=== PATIENT | female | born 1990 | race Caucasian/White ===

== ENCOUNTER 2021-11-06 05:03 | Inpatient (IN) ==
[2021-11-06] MEDS ORDERED: OXYTOCIN 30 UNITS/500 ML BAG IV PRN ×2 (05:44→07:24)
[2021-11-06] MEDS ORDERED: LIDOCAINE 1% LOCAL 20 ML VIAL INFIL PRN (05:44)
[2021-11-06 06:14] LABS: Hematocrit (blood only) 34.3 % (34.1-44.9); Hemoglobin 11.2 g/dl (12.0-16.0); Mean Corpuscular Hemoglobin 27.4 pg (25.0-34.0); Mean Corpuscular Hgb Conc 32.7 g/dL (32.0-36.0); Mean Corpuscular Volume 83.9 fL (80.0-100.0); Mean Platelet Volume 10.6 fL (9.4-12.3); Platelet Count 203 K/uL (130-400); RDW Coefficient of Variation 14.6 % (11.5-14.5); RDW Standard Deviation 44.6 fL (36.4-46.3); Red Blood Count 4.09 M/uL (3.93-5.22)
--- NOTE | 2021-11-06 07:28 | History & Physical Report ---
Date of Service November 06, 2021 Assessment & Plan (1) 38 weeks gestation of : (2) PROM (premature rupture of membranes): (3) Insulin controlled gestational diabetes mellitus (GDM) during : Plan admit, iv, labs. plan intermittent bsg. pitocin rec and agrees. fhts were categ 1, will need to get back on monitor. deferred repeat exam given on evidence of labor Admission and Anticipated Discharge Date Admission Date: November 06, 2021 History of Present Illness Chief Complaint: prom at term Primary Care Provider: Courtney Joshi PA-C 31yo at 38+wk ega presents to L&D with PROM at term. ROM clear fluid at 320am today. No regular ctx, just some cramping. Some pink dc but no bleeding. +FM. PNC c/b 1. GDM on insulin, was taking with meals and qhs. PNL rh pos, ri, gbs neg OBH: g1 GYNH: nl paps no stds Allergies Allergy/AdvReac Type Severity Reaction Status Date / Time amoxicillin AdvReac Rash Verified 10/30/21 15:40 Home Medications Medication Instructions Recorded Confirmed Type calcium carbonate 200 mg calcium 400 mg PO BID PRN gi-upset 01/08/21 11/06/21 History (500 mg) chewable tablet (Tums) [id number] 1 mg 0 tab PO DAILY 01/08/21 11/06/21 History tablet acetone (urine) test (Ketone Urine #50 ea 09/12/21 10/30/21 Rx Test strips) blood sugar diagnostic (OneTouch #150 ea 09/12/21 10/30/21 Rx Verio test strips) blood-glucose meter (OneTouch #1 ea 09/12/21 10/30/21 Rx Verio Reflect Meter) lancets 33 gauge (OneTouch Delica #150 ea 09/12/21 10/30/21 Rx Lancets) ondansetron HCl 4 mg tablet 4 mg PO Q6H PRN nausea and 09/16/21 11/06/21 Rx vomiting #20 tabs insulin NPH isoph U-100 human 100 10 unit (0.1 mL) subcut QPM #15 mL 10/01/21 11/06/21 Rx unit/mL (3 mL) subcutaneous pen (Novolin N Flexpen) insulin aspart U-100 100 unit/mL 5 unit (0.05 mL) subcut TID #15 mL 10/01/21 11/06/21 Rx (3 mL) subcutaneous pen (Novolog Flexpen U-100 Insulin aspart) pen needle, diabetic 32 gauge x #150 ea 10/01/21 10/30/21 Rx /32" (BD Ultra-Fine Sumi Pen Needle) Patient History Medical History (Updated 11/06/21 @ 07:26 by Ayaka Monaco MD, FACOG) No known health problems Surgical History S/P colonoscopy Status post colposcopy Family History Other Adopted Family history non-contributory Social History Smoking Status: Never smoker Second Hand Exposure: No; Do You Dip or Chew Tobacco: No; Tobacco Cessation Education Requested by Patient: No Hx Alcohol Use: No Hx Substance Use: No Preferred Language: Greenlandic Communication Ability: Effective Librarian Helper Required: No Beliefs That Will Affect Care: None marital status: marital status details: Kevin (32) [phone] Current Living Situation: Spouse Current Living Situation Comment: Lives with spouse, 2 cats, spouse to change litter. current occupational status: unemployed Other Information That Helps Us Care for You: No Feels Safe at Home: Yes Safety Concerns: Feels Safe At This Time Assistive Devices: None Review of Systems as per Subjective / HPI Physical Exam Constitutional: WD/WN, vitals as above Respiratory: normal respiratory effort, lungs clear to auscultation Cardiovascular: Rate/Rhythm: regular rate and regular rhythm Gastrointestinal (Abdomen): soft gravid nt efw 8-9# Musculoskeletal: tr edema nontender calves Neurologic: grossly normal Psychiatric: A+Ox3, euthymic affect Genitourinary: Manual OB Exam: + cervical dilation (2-3), + cervical effacement 90%, + station -2 and + amniotic fluid clear OB Exam Monitor Tracing: + external FHT monitor used, + external uterine monitor used (irreg on last time on monitor), + category I and + normal FHT variability Results & Data ([place]) Vital Signs (Past 12 Hours) Vital Signs Temp Pulse Resp BP 11/06/21 05:36 98.6 F 18 11/06/21 07:00 98.1 F 11/06/21 05:30 18 11/06/21 05:30 98.6 F 18 11/06/21 05:24 85 132/85 Code Status & VTE Plan VTE Prophylaxis Plan VTE Prophylaxis will be ordered: No Coding Level of Care Code None Diagnoses 38 weeks gestation of Z3A.38 PROM (premature rupture of membranes) O42.90 Insulin controlled gestational diabetes mellitus (GDM) during O24.414
[2021-11-06] MEDS: LACTATED RINGER'S 1,000 ML IV PRN ×3 (09:40→20:30)
[2021-11-06] MEDS ORDERED: ePHEDrine sulfate 50 MG/ML AMP ONE (17:19)
[2021-11-06] MEDS ORDERED: fentaNYL 2MCG/ML ROPIVACAINE 1.25MG/ML 100 ML BAG EPI ONE (17:20)
[2021-11-06] MEDS ORDERED: BUPIVACAINE 0.25% 30 ML VIAL ONE (17:20)
[2021-11-06] MEDS ORDERED: LIDOCAINE 2%/EPINEPHRINE 1:200,000 20 ML SDV ONE (17:20)
[2021-11-06] MEDS ORDERED: SODIUM CHLORIDE 0.9% INJ 10 ML VIAL ONE (17:20)
[2021-11-06] MEDS ORDERED: fentaNYL citrate 100 MCG/2 ML VIAL ONE (17:20)
--- NOTE | 2021-11-06 19:51 | Anesthesiology Consultation ---
Date of Service November 06, 2021 Assessment & Plan Chart Review Chart Review: Acceptable Risk for Labor Epidural Consults Requested none History Height/Weight Height: 5 ft 3 in Weight: 97.069 kg Allergies Allergy/AdvReac Type Severity Reaction Status Date / Time amoxicillin AdvReac Rash Verified 10/30/21 15:40 Medications Home Medications Medication Instructions Recorded Confirmed Last Taken calcium carbonate 200 mg calcium 400 mg PO BID PRN gi-upset 01/08/21 11/06/21 Unknown (500 mg) chewable tablet (Tums) [id number] 1 mg 0 tab PO DAILY 01/08/21 11/06/21 Unknown tablet acetone (urine) test (Ketone Urine #50 ea 09/12/21 10/30/21 Unknown Test strips) blood sugar diagnostic (OneTouch #150 ea 09/12/21 10/30/21 Unknown Verio test strips) blood-glucose meter (OneTouch #1 ea 09/12/21 10/30/21 Unknown Verio Reflect Meter) lancets 33 gauge (OneTouch Delica #150 ea 09/12/21 10/30/21 Unknown Lancets) ondansetron HCl 4 mg tablet 4 mg PO Q6H PRN nausea and 09/16/21 11/06/21 Unknown vomiting #20 tabs insulin NPH isoph U-100 human 100 10 unit (0.1 mL) subcut QPM #15 mL 10/01/21 11/06/21 Unknown unit/mL (3 mL) subcutaneous pen (Novolin N Flexpen) insulin aspart U-100 100 unit/mL 5 unit (0.05 mL) subcut TID #15 mL 10/01/21 11/06/21 Unknown (3 mL) subcutaneous pen (Novolog Flexpen U-100 Insulin aspart) pen needle, diabetic 32 gauge x #150 ea 10/01/21 10/30/21 Unknown 5/32" (BD Ultra-Fine Sumi Pen Needle) Active Medications Generic Name Dose Route Start Last Admin Trade Name Freq PRN Reason Stop Dose Admin Lactated Ringer's 1,000 mls @ 125 mls/hr 11/06/21 05:44 11/06/21 19:30 Lr IV 11/08/21 05:43 125 mls/hr .Q8H PRN Infusion L&D Protocol Protocol Oxytocin 30 units in 500 mls @ 21 mls/hr 11/06/21 07:24 11/06/21 18:30 Pitocin IV 11/08/21 07:23 1.26 units/hr .[id number] PRN 21 mls/hr Labor Induction/Augmentation Titration Protocol 1.26 UNITS/HR Past Medical History Medical History (Updated 11/06/21 @ 07:26 by Ayaka Monaco MD, FACOG) No known health problems Past Family History Family History Other Adopted Family history non-contributory Past Surgical History Surgical History S/P colonoscopy Status post colposcopy Social History Smoking Status: Never smoker Do You Dip or Chew Tobacco: No Hx Alcohol Use: No Hx Substance Use: No substance use type: does not use Physical Exam Vital Signs Last Vital Signs Temp 36.9 C 11/06/21 19:00 Pulse 100 H 11/06/21 19:48 Resp 18 11/06/21 19:00 BP 153/79 H 11/06/21 19:48 Pulse Ox 100 11/06/21 19:45 Testing Laboratory Results 11/06/21 05:56 Blood Type O Positive 11/06/21 05:56 Antibody Screen NEGATIVE 11/06/21 05:56 11/06/21 11/06/21 11/06/21 18:32 16:29 13:46 POC Glucose 92 80 86
[2021-11-06] MEDS ORDERED: ePHEDrine sulfate 50 MG/ML AMP IV PRN (19:53)
[2021-11-06] MEDS ORDERED: fentaNYL 2MCG/ML ROPIVACAINE 1.25MG/ML 100 ML BAG EPI PRN (19:53)
[2021-11-06] MEDS ORDERED: diphenhydrAMINE 50 MG/ML VIAL IV PRN (19:53)
[2021-11-06] MEDS ORDERED: NALOXONE HCL 0.4 MG/1 ML VIAL/CARP IV PRN (19:53)
[2021-11-06] MEDS ORDERED: NALBUPHINE HCL INJ 10 MG/ML AMP IV PRN (19:53)
[2021-11-06] MEDS ORDERED: NALOXONE HCL 1 MG in SODIUM CHLORIDE 0.9% 1000ML 1,000 ML IV PRN (19:53)
--- NOTE | 2021-11-06 21:10 | Labor Progress Brief Note ---
Date of Service November 06, 2021 Subjective comfortable with epidural analgesia FHT category 1 pitocin at 23 mu's contractions still not in a good pattern cervix still 5/80/-2 IUPC placed without difficulty and contractons confirmed to be inadequate continue current labor plan- increase pit per protocol. Assessment & Plan Admission and Anticipated Discharge Date Admission Date: November 06, 2021 Results & Data ([facility]) Vital Signs (Past 12 Hours) Vital Signs Temp Pulse Resp BP Pulse Ox 11/06/21 17:00 97.9 F 11/06/21 15:00 97.9 F 11/06/21 13:30 97.9 F 11/06/21 21:05 108 H 99 11/06/21 21:06 110 H 113/57 L 11/06/21 21:00 102 H 98 11/06/21 20:55 106 H 98 11/06/21 20:51 90 143/80 H 11/06/21 20:50 91 H 96 11/06/21 20:45 111 H 98 11/06/21 20:40 108 H 98 11/06/21 20:35 94 H 96 11/06/21 20:36 97 H 129/69 11/06/21 20:30 92 H 96 11/06/21 20:25 95 H 96 11/06/21 20:20 96 H 128/69 96 11/06/21 20:15 96 H 95 11/06/21 20:10 96 H 97 11/06/21 20:11 96 H 94 11/06/21 20:06 105 H 132/69 11/06/21 20:05 98 H 98 11/06/21 20:00 107 H 18 99 11/06/21 19:55 99 H 99 11/06/21 19:50 99 H 99 11/06/21 19:48 100 H 153/79 H 11/06/21 19:45 102 H 147/71 H 100 11/06/21 19:42 103 H 149/78 H 11/06/21 19:40 103 H 100 11/06/21 19:38 90 146/70 H 11/06/21 19:35 103 H 100 11/06/21 19:30 116 H 100 11/06/21 19:25 100 H 100 11/06/21 19:20 87 100 11/06/21 19:00 18 11/06/21 19:00 98.4 F 18 11/06/21 19:15 104 H 100 11/06/21 19:02 89 127/75 11/06/21 18:30 102 H 134/87 11/06/21 17:30 98.2 F 11/06/21 17:17 92 H 140/70 11/06/21 16:16 86 133/62 11/06/21 15:31 80 128/71 11/06/21 14:33 88 146/76 H 11/06/21 13:34 90 128/80 11/06/21 12:23 90 149/76 H 11/06/21 11:30 18 11/06/21 11:30 18 11/06/21 11:24 93 H 135/76 11/06/21 11:00 18 11/06/21 11:00 97.2 F L 11/06/21 11:01 102 H 150/86 H 11/06/21 09:30 97.9 F 11/06/21 09:39 104 H 132/65 Coding Level of Care Code None
[2021-11-07] MEDS: FAMOTIDINE 20 MG TAB PO SCH ×2 (00:54→10:54)
[2021-11-07] MEDS ORDERED: CALCIUM CARBONATE 500 MG CHEWABLE TAB PO STA (02:50)
--- NOTE | 2021-11-07 02:58 | Labor Progress Brief Note ---
Date of Service November 07, 2021 Subjective pitocin now at 30 mu's - contractions every 3-4 minutes but still only max of 30mmHg FHT's Category 1 7cm/90/-2 will stop pitocin for 30 minutes and restart at 15 mu's to see if this will help reset the pattern patient and agreeable to this plan Assessment & Plan Admission and Anticipated Discharge Date Admission Date: November 06, 2021 Results & Data ([facility]) Vital Signs (Past 12 Hours) Vital Signs Temp Pulse Resp BP Pulse Ox 11/06/21 17:00 97.9 F 11/06/21 15:00 97.9 F 11/07/21 02:45 134 H 99 11/07/21 02:40 118 H 100 11/07/21 02:37 104 H 150/83 H 11/07/21 02:35 107 H 100 11/07/21 02:30 99 H 98 11/07/21 02:25 114 H 100 11/07/21 02:20 99 H 124/72 99 11/07/21 02:15 97 H 97 11/07/21 02:10 94 H 98 11/07/21 02:05 105 H 122/76 98 11/07/21 02:00 98 H 96 11/07/21 01:55 106 H 96 11/07/21 01:51 99 H 128/79 11/07/21 01:50 102 H 98 11/07/21 01:45 107 H 100 11/07/21 01:40 111 H 99 11/07/21 01:35 114 H 140/98 99 11/07/21 01:30 123 H 18 99 11/07/21 01:25 136 H 99 11/07/21 01:20 102 H 98 11/07/21 01:15 112 H 98 11/07/21 01:10 111 H 98 11/07/21 01:05 94 H 127/59 L 99 11/07/21 01:00 100 H 100 11/07/21 00:55 100 H 100 11/07/21 00:52 88 129/60 11/07/21 00:50 99 H 100 11/07/21 00:45 95 H 100 11/07/21 00:40 101 H 99 11/07/21 00:35 100 H 100 11/07/21 00:36 104 H 132/89 11/07/21 00:30 99.0 F 99 H 18 99 11/07/21 00:25 130 H 99 11/07/21 00:20 108 H 100 11/07/21 00:21 112 H 140/95 11/07/21 00:15 98 H 100 11/07/21 00:10 93 H 96 11/07/21 00:05 90 98 11/07/21 00:06 90 135/71 11/07/21 00:00 91 H 18 96 11/06/21 23:55 91 H 95 11/06/21 23:50 96 H 97 11/06/21 23:51 107 H 142/84 H 11/06/21 23:45 105 H 98 11/06/21 23:40 100 H 96 11/06/21 23:36 93 H 143/77 H 11/06/21 23:35 89 98 11/06/21 23:30 98 H 99 11/06/21 23:25 101 H 98 11/06/21 23:20 97 H 144/71 H 98 11/06/21 23:15 98 H 97 11/06/21 23:10 87 98 11/06/21 23:06 86 146/72 H 11/06/21 23:05 91 H 98 11/06/21 23:00 114 H 18 100 11/06/21 22:55 85 100 11/06/21 22:50 90 152/81 H 100 11/06/21 22:45 84 99 11/06/21 22:40 83 100 11/06/21 22:36 83 138/71 11/06/21 22:35 77 99 11/06/21 22:30 81 100 11/06/21 22:25 93 H 100 11/06/21 22:20 84 138/76 99 11/06/21 22:15 82 98 11/06/21 22:10 82 98 11/06/21 22:07 84 136/76 11/06/21 22:05 82 98 11/06/21 22:00 82 18 98 11/06/21 21:55 79 98 11/06/21 21:50 98 11/06/21 21:50 81 11/06/21 21:50 80 133/63 11/06/21 21:45 87 99 11/06/21 21:40 93 H 98 11/06/21 21:37 81 135/67 11/06/21 21:35 87 98 11/06/21 21:30 86 98 11/06/21 21:25 87 100 11/06/21 21:21 96 H 134/70 11/06/21 21:20 98 H 98 11/06/21 21:15 94 H 99 11/06/21 21:10 103 H 100 11/06/21 21:05 108 H 99 11/06/21 21:06 110 H 113/57 L 11/06/21 21:00 98.6 F 102 H 18 98 11/06/21 20:55 106 H 98 11/06/21 20:51 90 143/80 H 11/06/21 20:50 91 H 96 11/06/21 20:45 111 H 98 11/06/21 20:40 108 H 98 11/06/21 20:35 94 H 96 11/06/21 20:36 97 H 129/69 11/06/21 20:30 92 H 96 11/06/21 20:25 95 H 96 11/06/21 20:20 96 H 128/69 96 11/06/21 20:15 96 H 95 11/06/21 20:10 96 H 97 11/06/21 20:11 96 H 94 11/06/21 20:06 105 H 132/69 11/06/21 20:05 98 H 98 11/06/21 20:00 107 H 18 99 11/06/21 19:55 99 H 99 11/06/21 19:50 99 H 99 11/06/21 19:48 100 H 153/79 H 11/06/21 19:45 102 H 147/71 H 100 11/06/21 19:42 103 H 149/78 H 11/06/21 19:40 103 H 100 11/06/21 19:38 90 146/70 H 11/06/21 19:35 103 H 100 11/06/21 19:30 116 H 100 11/06/21 19:25 100 H 100 11/06/21 19:20 87 100 11/06/21 19:00 18 11/06/21 19:00 98.4 F 18 11/06/21 19:15 104 H 100 11/06/21 19:02 89 127/75 11/06/21 18:30 102 H 134/87 11/06/21 17:30 98.2 F 11/06/21 17:17 92 H 140/70 11/06/21 16:16 86 133/62 11/06/21 15:31 80 128/71 Coding Level of Care Code None
[2021-11-07] MEDS: LACTATED RINGER'S 1,000 ML IV PRN ×2 (03:33→09:03)
[2021-11-07] MEDS ORDERED: ONDANSETRON INJ 2 MG/ML 2 ML VIAL IV PRN (07:27)
[2021-11-07] MEDS ORDERED: LACTATED RINGER'S 1,000 ML IV SCH ×2 (09:00→10:55)
[2021-11-07] MEDS ORDERED: CITRIC ACID/SODIUM CITRATE 15 ML UDC ONE (09:00)
--- NOTE | 2021-11-07 09:04 | Labor Progress Brief Note ---
Date of Service November 07, 2021 Subjective pitocin now at 23 mu's FHT's category 1 cervix exam unchanged at /-2 head feels asynclitic- patient counseled that since there has been no cervical change nor any further descent of the head that proceeding with LTCS would be an appropriate plan at this time. Shyanne and her are willing to proceed with section and were counseled on the risks of the procedure including bleeding & infection as well as the option to continue with labor but they feel ready to move onto delivery. all questions were answered to their satisfaction and they are willing to proceed. Assessment & Plan Admission and Anticipated Discharge Date Admission Date: November 06, 2021 Results & Data ([facility]) Vital Signs (Past 12 Hours) Vital Signs Temp Pulse Resp BP Pulse Ox 11/07/21 08:50 125 H 151/88 H 11/07/21 08:36 115 H 157/89 H 11/07/21 08:35 117 H 99 11/07/21 08:33 18 11/07/21 08:33 99.0 F 18 11/07/21 08:30 109 H 100 11/07/21 08:25 107 H 100 11/07/21 08:20 100 H 150/79 H 99 11/07/21 08:15 100 H 98 11/07/21 08:10 98 H 98 11/07/21 08:05 106 H 140/81 99 11/07/21 08:00 104 H 100 11/07/21 07:55 107 H 99 11/07/21 07:50 104 H 137/77 98 11/07/21 07:45 107 H 98 11/07/21 07:40 105 H 97 11/07/21 07:35 107 H 142/77 H 98 11/07/21 07:30 110 H 98 11/07/21 07:25 114 H 100 11/07/21 07:20 109 H 98 11/07/21 07:21 103 H 140/80 11/07/21 07:15 113 H 99 11/07/21 07:10 108 H 100 11/07/21 07:07 20 11/07/21 07:07 98.6 F 20 11/07/21 07:05 110 H 151/83 H 100 11/07/21 07:00 112 H 100 11/07/21 06:55 107 H 100 11/07/21 06:50 113 H 100 11/07/21 06:51 111 H 143/80 H 11/07/21 06:45 105 H 100 11/07/21 06:40 109 H 99 11/07/21 06:35 99 H 119/60 99 11/07/21 06:30 92 H 100 11/07/21 06:25 90 99 11/07/21 06:20 99 H 119/58 L 98 11/07/21 06:15 97 H 99 11/07/21 06:10 101 H 100 11/07/21 06:05 106 H 121/56 L 100 11/07/21 06:00 92 H 99 11/07/21 05:55 97 H 100 11/07/21 05:50 93 H 99 11/07/21 05:51 90 122/58 L 11/07/21 05:45 88 99 11/07/21 05:40 90 98 11/07/21 05:35 83 114/60 99 11/07/21 05:30 98.6 F 90 18 100 11/07/21 05:25 107 H 100 11/07/21 05:20 113 H 100 11/07/21 05:15 97 H 98 11/07/21 05:10 97 H 98 11/07/21 05:05 93 H 98 11/07/21 05:06 96 H 137/77 11/07/21 05:00 97 H 97 11/07/21 04:55 103 H 97 11/07/21 04:50 97 H 141/73 H 99 11/07/21 04:45 98 H 97 11/07/21 04:40 94 H 98 11/07/21 04:35 90 144/73 H 98 11/07/21 04:30 97 H 98 11/07/21 04:25 101 H 98 11/07/21 04:20 101 H 134/70 98 11/07/21 04:15 121 H 98 11/07/21 04:10 107 H 96 11/07/21 04:05 110 H 124/69 96 11/07/21 04:00 112 H 96 11/07/21 03:55 116 H 96 11/07/21 03:52 117 H 133/78 11/07/21 03:50 116 H 96 11/07/21 03:45 128 H 97 11/07/21 03:40 136 H 97 11/07/21 03:35 111 H 97 11/07/21 03:30 98.2 F 112 H 18 97 11/07/21 03:25 121 H 98 11/07/21 03:20 105 H 147/74 H 97 11/07/21 03:15 107 H 97 11/07/21 03:10 108 H 96 11/07/21 03:05 110 H 148/70 H 97 11/07/21 03:00 115 H 98 11/07/21 02:55 123 H 98 11/07/21 02:50 118 H 151/73 H 97 11/07/21 02:45 134 H 99 11/07/21 02:40 118 H 100 11/07/21 02:37 104 H 150/83 H 11/07/21 02:35 107 H 100 11/07/21 02:30 99 H 98 11/07/21 02:25 114 H 100 11/07/21 02:20 99 H 124/72 99 11/07/21 02:15 97 H 97 11/07/21 02:10 94 H 98 11/07/21 02:05 105 H 122/76 98 11/07/21 02:00 98 H 96 11/07/21 01:55 106 H 96 11/07/21 01:51 99 H 128/79 11/07/21 01:50 102 H 98 11/07/21 01:45 107 H 100 11/07/21 01:40 111 H 99 11/07/21 01:35 114 H 140/98 99 11/07/21 01:30 123 H 18 99 11/07/21 01:25 136 H 99 11/07/21 01:20 102 H 98 11/07/21 01:15 112 H 98 11/07/21 01:10 111 H 98 11/07/21 01:05 94 H 127/59 L 99 11/07/21 01:00 100 H 100 11/07/21 00:55 100 H 100 11/07/21 00:52 88 129/60 11/07/21 00:50 99 H 100 11/07/21 00:45 95 H 100 11/07/21 00:40 101 H 99 11/07/21 00:35 100 H 100 11/07/21 00:36 104 H 132/89 11/07/21 00:30 99.0 F 99 H 18 99 11/07/21 00:25 130 H 99 11/07/21 00:20 108 H 100 11/07/21 00:21 112 H 140/95 11/07/21 00:15 98 H 100 11/07/21 00:10 93 H 96 11/07/21 00:05 90 98 11/07/21 00:06 90 135/71 11/07/21 00:00 91 H 18 96 11/06/21 23:55 91 H 95 11/06/21 23:50 96 H 97 11/06/21 23:51 107 H 142/84 H 11/06/21 23:45 105 H 98 11/06/21 23:40 100 H 96 11/06/21 23:36 93 H 143/77 H 11/06/21 23:35 89 98 11/06/21 23:30 98 H 99 11/06/21 23:25 101 H 98 11/06/21 23:20 97 H 144/71 H 98 11/06/21 23:15 98 H 97 11/06/21 23:10 87 98 11/06/21 23:06 86 146/72 H 11/06/21 23:05 91 H 98 11/06/21 23:00 114 H 18 100 11/06/21 22:55 85 100 11/06/21 22:50 90 152/81 H 100 11/06/21 22:45 84 99 11/06/21 22:40 83 100 11/06/21 22:36 83 138/71 11/06/21 22:35 77 99 11/06/21 22:30 81 100 11/06/21 22:25 93 H 100 11/06/21 22:20 84 138/76 99 11/06/21 22:15 82 98 11/06/21 22:10 82 98 11/06/21 22:07 84 136/76 11/06/21 22:05 82 98 11/06/21 22:00 82 18 98 11/06/21 21:55 79 98 11/06/21 21:50 98 11/06/21 21:50 81 11/06/21 21:50 80 133/63 11/06/21 21:45 87 99 11/06/21 21:40 93 H 98 11/06/21 21:37 81 135/67 11/06/21 21:35 87 98 11/06/21 21:30 86 98 11/06/21 21:25 87 100 11/06/21 21:21 96 H 134/70 11/06/21 21:20 98 H 98 11/06/21 21:15 94 H 99 11/06/21 21:10 103 H 100 11/06/21 21:05 108 H 99 11/06/21 21:06 110 H 113/57 L 11/06/21 21:00 98.6 F 102 H 18 98 Coding Level of Care Code None
[2021-11-07] MEDS ORDERED: CITRIC ACID/SODIUM CITRATE 15 ML UDC PO SCH (09:15)
[2021-11-07] MEDS ORDERED: LIDOCAINE 2%/EPINEPHRINE 1:200,000 20 ML SDV ONE (10:02)
[2021-11-07] MEDS ORDERED: PHENYLEPHRINE 100MCG/ML 5ML SYR ONE (10:02)
[2021-11-07] MEDS ORDERED: ONDANSETRON INJ 2 MG/ML 2 ML VIAL ONE (10:02)
[2021-11-07] MEDS ORDERED: METOCLOPRAMIDE HCL INJ 5 MG/ML 2 ML VIAL ONE (10:02)
[2021-11-07] MEDS ORDERED: MoRPHine SULFATE PF 1 MG/ML 10 ML AMP/VIAL ONE (10:02)
[2021-11-07] MEDS ORDERED: KETOROLAC 30 MG/ML VIAL ONE (10:02)
[2021-11-07] MEDS ORDERED: NALOXONE HCL 1 MG in SODIUM CHLORIDE 0.9% 1000ML 1,000 ML IV PRN (10:12)
[2021-11-07] MEDS ORDERED: LACTATED RINGER'S 500 ML IV PRN (10:12)
[2021-11-07] MEDS ORDERED: NALOXONE HCL 0.08 MG in SYRINGE 1.8 ML IV PRN (10:12)
[2021-11-07] MEDS ORDERED: NALBUPHINE HCL INJ 10 MG/ML AMP IV PRN (10:12)
[2021-11-07] MEDS ORDERED: ePHEDrine sulfate 50 MG/ML AMP IV PRN (10:12)
[2021-11-07] MEDS ORDERED: diphenhydrAMINE 50 MG/ML VIAL IV PRN (10:12)
[2021-11-07] MEDS ORDERED: MoRPHine SULFATE PF 1 MG/ML 10 ML AMP/VIAL EPI ONE (10:12)
[2021-11-07] MEDS ORDERED: HYDROmorphone INJ 0.5 MG/0.5 ML SYR IV PRN (10:12)
[2021-11-07] MEDS ORDERED: NALOXONE HCL 0.4 MG/1 ML VIAL/CARP IV PRN (10:12)
[2021-11-07] MEDS ORDERED: PROMETHAZINE HCL 25 MG in SODIUM CHLORIDE 0.9% 50 ML IV PRN (10:12)
[2021-11-07] MEDS ORDERED: ACETAMINOPHEN 325 MG TAB PO PRN (10:12)
[2021-11-07] MEDS ORDERED: NO NARCOTICS OR SEDATIVES SCH (10:15)
[2021-11-07] MEDS ORDERED: SODIUM CHLORIDE 0.9% 1000ML 1,000 ML IV SCH (10:15)
[2021-11-07] MEDS ORDERED: DC INTRASPINAL MORPHINE SCH (10:15)
--- NOTE | 2021-11-07 10:42 | Operative Report ---
PG Post Operative Report Pre & Post Diagnosis Operation Date: 11/07/21 09:10 Pre-Op Diagnosis: Pregancy gestation at 38wks failure to progress Post-Op Diagnosis: Pregnacy at 38 weeks gestation failure to progress I identified the patient and participated in the time-out.: Yes Procedure Operation Date: 11/07/21 09:10 Actual Procedures p Primary low transverse Section in LD live female child born at 0955 - Taylor Quevedo MD, FACOG Surgeon Taylor Quevedo MD, FACOG Compound Machine Operator Dr. Daniels Estimated Blood Loss 600 Findings Consistent with Post-Op Diagnosis viable female infant, op, slighty asynclitic, apgars 8/9. uterus, tubes, ovaries normal bilaterally Fluids 1200cc, uop 300cc Specimens placenta, cord segment Drains clifford Anesthesia Type L&D Only Epidural Exists Complications none Disposition Accompanied Patient To Recovery: Yes Disposition: L&D Indications Patient is a 31yowf at 38 weeks who presented with srom and then required pitocin augmentation. Got to 7-8cm and did not progress beyond that. Description of Procedure The patient was taken to the operating room where she was identified verbally and by bracelet. She was seated on the operating table where her epidural was dosed by anesthesia. She was then placed in the supine position with a leftward tilt. A Clifford catheter had been placed sterilely. The patient was prepped and draped in a normal standard fashion. The anesthetic was tested and found to be adequate. A time-out was held, identifying correct patient, procedure, positioning and preoperative antibiotics. There were no concerns. A Pfannenstiel skin incision was made with a knife and taken down to the underlying layer of fascia with the knife and Bovie electrocautery. Bleeding was attended to with the Bovie. The fascia was incised in the midline with the knife and taken out laterally with scissors. The superior edge of the fascial incision was grasped, elevated and the underlying layer of rectus muscle was taken off bluntly and with scissors. In a similar fashion, the inferior edge of the fascial incision was grasped, elevated and the underlying layer of rectus muscle was taken off bluntly and with scissors. The muscles were bluntly in the midline. The peritoneum was entered bluntly. The incision was then stretched. The bladder blade was placed. The vesicouterine peritoneum was identified, entered with scissors and taken out laterally with scissors. The bladder flap was created digitally A hysterotomy incision was scored with a knife and the incision was stretched superiorly and inferiorly with the cleaning and washing equipment operator's fingers. The operators hand was placed into the incision and the head was delivered atraumatically. No nuchal cord. The nose and mouth were bulb suctioned. the rest of the infant was then delivered without difficu lty. The nose and mouth were again bulb suctioned. The cord was clamped and cut and the infant was then handed off to the awaiting superintendent [facility] for drying and attention. Cord blood and segment were obtained. The placenta was expressed. The uterus was exteriorized and cleared of all clot and debris with moistened laparotomy sponges. The hysterotomy incision was repaired in two layers, the first in a running locked layer, the second in an imbricating layer. Nano uterus was boggy and intramuscular hemobate was given into the uterine muscle. After massage, Hemostasis was noted to be good. Posterior cul-de-sac was cleared of all clot and debris. The hysterotomy incision was again inspected and found to be hemostatic. the uterus was reinteriorized. Hysterotomy incision was again inspected and found to be hemostatic. Rectus muscles were reapproximated with several interrupted stitches of 0 Vicryl. The fascia was then reapproximated with 0 Vicryl starting at the edges and meeting in the midline. The subcuticular tissues were copiously irrigated and bleeding was attended to with cautery. The skin was then closed with 4-0 Vicryl in a subcuticular fashion. All sponge, lap and needle counts were correct x 2. The procedure was terminated. The patient was taken to the recovery room in stable condition. I attest to the content of the Intraoperative Record and any orders documented therein. Any exceptions are noted below. OB Procedure Charges 53345
[2021-11-07] MEDS ORDERED: SENNA 8.6 MG TAB PO PRN (10:55)
[2021-11-07] MEDS ORDERED: MAGNESIUM HYDROXIDE SUSP 30 ML UDC PO PRN (10:55)
[2021-11-07] MEDS ORDERED: BENZOCAINE 20% AER SPR 82.5 GM CAN EXT PRN (10:55)
[2021-11-07] MEDS ORDERED: DIPHTHERIA/TETANUS/PERTUSSIS 0.5 ML SYR/VIAL IM ONE (10:55)
[2021-11-07] MEDS ORDERED: CARBOPROST TROMETHAMINE 250 MCG/ML AMPUL IM ONE (10:55)
[2021-11-07] MEDS ORDERED: HYDROCORTISONE ACETATE 25 MG SUPP PR PRN (10:55)
--- NOTE | 2021-11-07 11:08 | Anesthesia Procedure Note ---
Date of Service November 07, 2021 Anesthesia Post Epidural Note Vital Signs Vital Signs: Temp Pulse Resp BP Pulse Ox 99.0 F 104 H 18 129/63 98 11/07/21 08:33 11/07/21 11:04 11/07/21 08:33 11/07/21 11:03 11/07/21 11:04 Pain Intensity Bilateral Lower Abdomen: Pain Intensity: 0 Notes Mental Status: alert / awake / arousable and participated in evaluation Nausea / Vomiting: adequately controlled Pain: adequately controlled Airway Patency, RR, SpO2: stable & adequate BP & HR: stable & adequate Hydration State: stable & adequate Neuraxial Anesthesia: was administered and sensory block is resolving Anesthetic Complications: no major complications apparent and Pt Satisfied with anesthetic care Epidural: Removed without complications and With tip intact
--- NOTE | 2021-11-07 11:09 | Anesthesiology Progress Note ---
Date of Service November 07, 2021 Anesthesia Post Procedure Vital Signs Vital Signs: Temp Pulse Resp BP Pulse Ox 11/06/21 17:00 97.9 F 11/06/21 15:00 97.9 F 11/06/21 13:30 97.9 F 11/07/21 11:04 104 H 98 11/07/21 11:03 99 H 129/63 11/07/21 10:59 100 H 96 11/07/21 10:54 102 H 138/66 96 11/07/21 10:49 102 H 98 11/07/21 10:44 98 11/07/21 10:44 119 H 11/07/21 10:44 106 H 128/70 11/07/21 10:39 103 H 98 11/07/21 10:34 107 H 97 11/07/21 10:33 106 H 129/75 11/07/21 09:05 136 H 160/107 H 11/07/21 08:50 125 H 151/88 H 11/07/21 08:36 115 H 157/89 H 11/07/21 08:35 117 H 99 11/07/21 08:33 18 11/07/21 08:33 99.0 F 18 11/07/21 08:30 109 H 100 11/07/21 08:25 107 H 100 11/07/21 08:20 100 H 150/79 H 99 11/07/21 08:15 100 H 98 11/07/21 08:10 98 H 98 11/07/21 08:05 106 H 140/81 99 11/07/21 08:00 104 H 100 11/07/21 07:55 107 H 99 11/07/21 07:50 104 H 137/77 98 11/07/21 07:45 107 H 98 11/07/21 07:40 105 H 97 11/07/21 07:35 107 H 142/77 H 98 11/07/21 07:30 110 H 98 11/07/21 07:25 114 H 100 11/07/21 07:20 109 H 98 11/07/21 07:21 103 H 140/80 11/07/21 07:15 113 H 99 11/07/21 07:10 108 H 100 11/07/21 07:07 20 11/07/21 07:07 98.6 F 20 11/07/21 07:05 110 H 151/83 H 100 11/07/21 07:00 112 H 100 11/07/21 06:55 107 H 100 11/07/21 06:50 113 H 100 11/07/21 06:51 111 H 143/80 H 11/07/21 06:45 105 H 100 11/07/21 06:40 109 H 99 11/07/21 06:35 99 H 119/60 99 11/07/21 06:30 92 H 100 11/07/21 06:25 90 99 11/07/21 06:20 99 H 119/58 L 98 11/07/21 06:15 97 H 99 11/07/21 06:10 101 H 100 11/07/21 06:05 106 H 121/56 L 100 11/07/21 06:00 92 H 99 11/07/21 05:55 97 H 100 11/07/21 05:50 93 H 99 11/07/21 05:51 90 122/58 L 11/07/21 05:45 88 99 11/07/21 05:40 90 98 11/07/21 05:35 83 114/60 99 11/07/21 05:30 98.6 F 90 18 100 11/07/21 05:25 107 H 100 11/07/21 05:20 113 H 100 11/07/21 05:15 97 H 98 11/07/21 05:10 97 H 98 11/07/21 05:05 93 H 98 11/07/21 05:06 96 H 137/77 11/07/21 05:00 97 H 97 11/07/21 04:55 103 H 97 11/07/21 04:50 97 H 141/73 H 99 11/07/21 04:45 98 H 97 11/07/21 04:40 94 H 98 11/07/21 04:35 90 144/73 H 98 11/07/21 04:30 97 H 98 11/07/21 04:25 101 H 98 11/07/21 04:20 101 H 134/70 98 11/07/21 04:15 121 H 98 11/07/21 04:10 107 H 96 11/07/21 04:05 110 H 124/69 96 11/07/21 04:00 112 H 96 11/07/21 03:55 116 H 96 11/07/21 03:52 117 H 133/78 11/07/21 03:50 116 H 96 11/07/21 03:45 128 H 97 11/07/21 03:40 136 H 97 11/07/21 03:35 111 H 97 11/07/21 03:30 98.2 F 112 H 18 97 11/07/21 03:25 121 H 98 11/07/21 03:20 105 H 147/74 H 97 11/07/21 03:15 107 H 97 11/07/21 03:10 108 H 96 11/07/21 03:05 110 H 148/70 H 97 11/07/21 03:00 115 H 98 11/07/21 02:55 123 H 98 11/07/21 02:50 118 H 151/73 H 97 11/07/21 02:45 134 H 99 11/07/21 02:40 118 H 100 11/07/21 02:37 104 H 150/83 H 11/07/21 02:35 107 H 100 11/07/21 02:30 99 H 98 11/07/21 02:25 114 H 100 11/07/21 02:20 99 H 124/72 99 11/07/21 02:15 97 H 97 11/07/21 02:10 94 H 98 11/07/21 02:05 105 H 122/76 98 11/07/21 02:00 98 H 96 11/07/21 01:55 106 H 96 11/07/21 01:51 99 H 128/79 11/07/21 01:50 102 H 98 11/07/21 01:45 107 H 100 11/07/21 01:40 111 H 99 11/07/21 01:35 114 H 140/98 99 11/07/21 01:30 123 H 18 99 11/07/21 01:25 136 H 99 11/07/21 01:20 102 H 98 11/07/21 01:15 112 H 98 11/07/21 01:10 111 H 98 11/07/21 01:05 94 H 127/59 L 99 11/07/21 01:00 100 H 100 11/07/21 00:55 100 H 100 11/07/21 00:52 88 129/60 11/07/21 00:50 99 H 100 11/07/21 00:45 95 H 100 11/07/21 00:40 101 H 99 09/02/22 00:35 100 H 100 11/07/21 00:36 104 H 132/89 11/07/21 00:30 99.0 F 99 H 18 99 11/07/21 00:25 130 H 99 11/07/21 00:20 108 H 100 11/07/21 00:21 112 H 140/95 11/07/21 00:15 98 H 100 11/07/21 00:10 93 H 96 11/07/21 00:05 90 98 11/07/21 00:06 90 135/71 11/07/21 00:00 91 H 18 96 11/06/21 23:55 91 H 95 11/06/21 23:50 96 H 97 11/06/21 23:51 107 H 142/84 H 11/06/21 23:45 105 H 98 11/06/21 23:40 100 H 96 11/06/21 23:36 93 H 143/77 H 11/06/21 23:35 89 98 11/06/21 23:30 98 H 99 11/06/21 23:25 101 H 98 11/06/21 23:20 97 H 144/71 H 98 11/06/21 23:15 98 H 97 11/06/21 23:10 87 98 11/06/21 23:06 86 146/72 H 11/06/21 23:05 91 H 98 11/06/21 23:00 114 H 18 100 11/06/21 22:55 85 100 11/06/21 22:50 90 152/81 H 100 11/06/21 22:45 84 99 11/06/21 22:40 83 100 11/06/21 22:36 83 138/71 11/06/21 22:35 77 99 11/06/21 22:30 81 100 11/06/21 22:25 93 H 100 11/06/21 22:20 84 138/76 99 11/06/21 22:15 82 98 11/06/21 22:10 82 98 11/06/21 22:07 84 136/76 11/06/21 22:05 82 98 11/06/21 22:00 82 18 98 11/06/21 21:55 79 98 11/06/21 21:50 98 11/06/21 21:50 81 11/06/21 21:50 80 133/63 09/01/22 21:45 87 99 11/06/21 21:40 93 H 98 11/06/21 21:37 81 135/67 11/06/21 21:35 87 98 11/06/21 21:30 86 98 11/06/21 21:25 87 100 11/06/21 21:21 96 H 134/70 11/06/21 21:20 98 H 98 11/06/21 21:15 94 H 99 11/06/21 21:10 103 H 100 11/06/21 21:05 108 H 99 11/06/21 21:06 110 H 113/57 L 11/06/21 21:00 98.6 F 102 H 18 98 11/06/21 20:55 106 H 98 11/06/21 20:51 90 143/80 H 11/06/21 20:50 91 H 96 11/06/21 20:45 111 H 98 11/06/21 20:40 108 H 98 11/06/21 20:35 94 H 96 11/06/21 20:36 97 H 129/69 11/06/21 20:30 92 H 96 11/06/21 20:25 95 H 96 11/06/21 20:20 96 H 128/69 96 11/06/21 20:15 96 H 95 11/06/21 20:10 96 H 97 11/06/21 20:11 96 H 94 11/06/21 20:06 105 H 132/69 11/06/21 20:05 98 H 98 11/06/21 20:00 107 H 18 99 11/06/21 19:55 99 H 99 11/06/21 19:50 99 H 99 11/06/21 19:48 100 H 153/79 H 11/06/21 19:45 102 H 147/71 H 100 11/06/21 19:42 103 H 149/78 H 11/06/21 19:40 103 H 100 11/06/21 19:38 90 146/70 H 11/06/21 19:35 103 H 100 11/06/21 19:30 116 H 100 11/06/21 19:25 100 H 100 11/06/21 19:20 87 100 11/06/21 19:00 18 11/06/21 19:00 98.4 F 18 11/06/21 19:15 104 H 100 11/06/21 19:02 89 127/75 11/06/21 18:30 102 H 134/87 11/06/21 17:30 98.2 F 11/06/21 17:17 92 H 140/70 11/06/21 16:16 86 133/62 11/06/21 15:31 80 128/71 11/06/21 14:33 88 146/76 H 11/06/21 13:34 90 128/80 11/06/21 12:23 90 149/76 H 11/06/21 11:30 18 11/06/21 11:30 18 11/06/21 11:24 93 H 135/76 Pain Intensity Bilateral Lower Abdomen: Pain Intensity: 0 Transfer of Care Handoff Completed per policy Notes Mental Status: alert / awake / arousable and participated in evaluation Patient Amnestic to Procedure: No Nausea / Vomiting: improving with treatment Pain: adequately controlled Airway Patency, RR, SpO2: stable & adequate BP & HR: stable & adequate Hydration State: stable & adequate Neuraxial Anesthesia: sensory block is resolving Anesthetic Complications: no major complications apparent and Pt Satisfied with anesthetic care
[2021-11-07] MEDS ORDERED: ACETAMINOPHEN 1000 MG/100 ML IV IV PRN (11:52)
[2021-11-07] MEDS ORDERED: ACETAMINOPHEN 1000 MG/100 ML IV IV ONE (12:01)
[2021-11-07] MEDS ORDERED: ACETAMINOPHEN 1,000 MG/100 ML VIAL IV PRN (12:02)
[2021-11-07] MEDS: OXYTOCIN 20 UNITS in LACTATED RINGER'S 1,000 ML IV SCH ×2 (12:11→20:10)
[2021-11-07] MEDS ORDERED: SODIUM CHLORIDE 0.9% 250 ML IV PRN (14:26)
[2021-11-07] MEDS: SIMETHICONE 80 MG CHEW PO SCH ×3 (15:22→20:53)
[2021-11-07] MEDS: KETOROLAC 30 MG/ML VIAL IV PRN (19:54)
[2021-11-07] MEDS: DOCUSATE SODIUM 100 MG CAP PO SCH (20:53)
[2021-11-08] MEDS: KETOROLAC 30 MG/ML VIAL IV PRN (02:14)
[2021-11-08] MEDS ORDERED: PROMETHAZINE HCL 25 MG in SODIUM CHLORIDE 0.9% 50 ML IV PRN (04:13)
[2021-11-08] MEDS ORDERED: ONDANSETRON INJ 2 MG/ML 2 ML VIAL IV PRN (04:13)
[2021-11-08] MEDS ORDERED: diphenhydrAMINE Capsule 25 MG CAP PO PRN (04:13)
[2021-11-08] MEDS ORDERED: diphenhydrAMINE 50 MG/ML VIAL IV PRN (04:13)
[2021-11-08] MEDS ORDERED: CITRIC ACID/SODIUM CITRATE 15 ML UDC PO SCH (06:00)
[2021-11-08] MEDS ORDERED: ceFAZolin 2000MG 2,000 MG/15 ML SYR IV SCH (06:00)
[2021-11-08 07:10] LABS: Basophils # (auto) 0.04 K/uL (0-0.2); Basophils % (auto) 0.4 %; Eosinophils # (auto) 0.11 K/uL (0-0.50); Hematocrit (blood only) 25.4 % (34.1-44.9); Hemoglobin 8.4 g/dl (12.0-16.0); Immature Granulocytes # (auto) 0.05 K/uL (0.00-0.02); Immature Granulocytes % (auto) 0.5 %; Lymphocytes # (auto) 1.59 K/uL (1.2-3.4); Lymphocytes % (auto) 14.7 %; Mean Corpuscular Hemoglobin 27.9 pg (25.0-34.0); Mean Corpuscular Hgb Conc 33.1 g/dL (32.0-36.0); Mean Corpuscular Volume 84.4 fL (80.0-100.0); Mean Platelet Volume 10.5 fL (9.4-12.3); Monocytes # (auto) 0.64 K/uL (0.24-0.82); Monocytes % (auto) 5.9 %; Neutrophils # (auto) 8.39 K/uL (1.4-6.5); Neutrophils % (auto) 77.5 %; Platelet Count 168 K/uL (130-400); RDW Coefficient of Variation 15.1 % (11.5-14.5); RDW Standard Deviation 46.1 fL (36.4-46.3); Red Blood Count 3.01 M/uL (3.93-5.22); White Blood Count 10.82 K/ul (4.8-10.8)
--- NOTE | 2021-11-08 07:43 | Obstetrical Progress Note ---
Date of Service <Noemí Ray MD - Last Filed: 11/08/21 08:20> November 08, 2021 Assessment & Plan <Noemí Ray MD - Last Filed: 11/08/21 08:20> (1) Encounter for care and examination after delivery: 31yo at 38+wk ega presented to L&D with PROM at term now POD1 s/p c/s. PNC c/b 1. GDM on insulin, was taking with meals and qhs. PNL rh pos, ri, gbs neg tolerating diet encourage ambulation (2) Failure to progress in labor, delivered, current hospitalization: <Oneil Arreguin MD - Last Filed: 11/08/21 08:33> (1) Encounter for care and examination after delivery: (2) Failure to progress in labor, delivered, current hospitalization: Plan patient seen with resident agree of the above findings and plan. Hemoglobin 8.4 this a.m. and will continue to monitor for anemia symptoms. Subjective <Noemí Ray MD - Last Filed: 11/08/21 08:20> Ambulation: limited ambulation Voiding: no voiding problems Passing Gas:: Yes Diet Tolerance:: clear liquids Lochia:: Small Feeding Type:: breast feeding Physical Exam <Noemí Ray MD - Last Filed: 11/08/21 08:20> Constitutional WD/WN, vitals as above Respiratory normal respiratory effort, lungs clear to auscultation Cardiovascular RRR, no murmur, no edema no calf tenderness Gastrointestinal (Abdomen) uterine fundus firm at 1 cm below the level of the umbilicus, incision c/d/i no strikethrough soft NT Results & Data ([facility]) <Noemí Ray MD - Last Filed: 11/08/21 08:20> Vital Signs (Past 12 Hours) Vital Signs Temp Pulse Resp BP Pulse Ox O2 Del Method 11/08/21 04:00 20 99 11/08/21 03:00 20 98 11/08/21 02:00 18 96 11/08/21 03:47 37.1 C 101 H 20 119/77 96 Room Air 11/08/21 01:00 18 97 11/08/21 00:00 18 96 11/07/21 23:00 18 98 11/07/21 22:00 18 97 11/07/21 22:45 37.0 C 103 H 18 110/67 97 Room Air 11/07/21 21:00 20 96 11/07/21 20:00 18 95 11/07/21 21:25 37.3 C 102 H 20 122/70 96 Room Air Resident Activity Tracking <Noemí Ray MD - Last Filed: 11/08/21 08:20> Resident Involvement: Resident Care Provided Care Provided: Adult Hospital Medicine
[2021-11-08] MEDS: oxyCODONE/ACETAMINOPHEN 5mg/325mg TAB PO PRN ×4 (08:10→20:05)
[2021-11-08] MEDS: SIMETHICONE 80 MG CHEW PO SCH ×2 (08:10→12:00)
[2021-11-08] MEDS: DOCUSATE SODIUM 100 MG CAP PO SCH ×2 (08:11→20:07)
[2021-11-08] MEDS: FERROUS SULFATE 325 MG TAB PO SCH (08:11)
[2021-11-08] MEDS: PRENATAL VITAMIN 1 TAB PO SCH (08:11)
[2021-11-08] MEDS: IBUPROFEN 600 MG TAB PO PRN ×4 (09:10→20:05)
[2021-11-08] MEDS ORDERED: bisacodyL 5 MG TABEC PO SCH (20:00)
[2021-11-09] MEDS: oxyCODONE/ACETAMINOPHEN 5mg/325mg TAB PO PRN ×4 (00:11→13:47)
[2021-11-09] MEDS: IBUPROFEN 600 MG TAB PO PRN ×3 (00:12→13:46)
[2021-11-09 06:45] LABS: Hematocrit (blood only) 27.9 % (34.1-44.9); Hemoglobin 8.7 g/dl (12.0-16.0)
[2021-11-09] MEDS: DOCUSATE SODIUM 100 MG CAP PO SCH (07:39)
[2021-11-09] MEDS: FERROUS SULFATE 325 MG TAB PO SCH (07:39)
[2021-11-09] MEDS: PRENATAL VITAMIN 1 TAB PO SCH (07:39)
[2021-11-09] MEDS: SIMETHICONE 80 MG CHEW PO SCH ×2 (07:39→13:47)
--- NOTE | 2021-11-09 08:16 | Obstetrical Progress Note ---
Date of Service November 09, 2021 Assessment & Plan (1) Failure to progress in labor, delivered, current hospitalization: (2) delivery delivered: Plan Patient doing well. Desires d/c today. Instructions given. Pain meds sent. f/u 6 weeks at the office. Day #:: 2 Subjective Ambulation: ambulating normally Voiding: no voiding problems Passing Gas:: Yes Diet Tolerance:: regular diet Lochia:: Small Feeding Type:: breast feeding Pain controlled with oral pain meds. Would like to be d/c today. Physical Exam Constitutional WD/WN, vitals as above Respiratory normal respiratory effort, lungs clear to auscultation Cardiovascular RRR, no murmur, no edema Extremities: + edema (tr); no calf tenderness Gastrointestinal (Abdomen) soft, nt, nd, no masses incision c/d/i ff/nt at u Psychiatric A+Ox3, euthymic affect Results & Data ([facility]) Vital Signs (Past 12 Hours) Vital Signs Temp Pulse Resp BP 11/09/21 00:10 36.9 C 97 H 18 126/79
[2021-11-09] MEDS ORDERED: bisacodyL 10 MG SUPP PR PRN (10:25)
--- NOTE | 2021-11-11 17:42 | Discharge Summary (DS) ---
DATE OF ADMISSION: 11/06/2021. DATE OF DISCHARGE: 11/09/2021. ADMISSION DIAGNOSES: 1. Intrauterine at 38 weeks. 2. Premature rupture of membranes. 3. Insulin controlled gestational diabetes. DISCHARGE DIAGNOSES: 1. Intrauterine at 38 weeks. 2. Premature rupture of membranes. 3. Insulin controlled gestational diabetes. 4. Failure to progress. PROCEDURES: Primary low transverse section. HISTORY: The patient is a 31-year-old white female, 1, para 0 at 38+ weeks gestational age, who presents to labor and delivery with premature rupture of membranes at term. Fluid was clear at 3 :20 a.m. on day of admission. No regular contractions, just some cramping, some slight pink discharg e. Good movement. care complicated by gestational diabetes, on insulin. For the rest of the patient's detailed history and physical, please see her history and physical. ASSESSMENT: This is a 38-week intrauterine with premature rupture of membranes. She was a dmitted. Pitocin was started. heart tones were category 1. The patient progressed very slowl y in labor. She had an IUPC placed to monitor contractions and Pitocin. She progressed to 7-8 cm, 9 0%, -2. The head felt asynclitic. She had a good contraction pattern, was not making any further torres rgical change or further descent of the head and was recommended. The patient underw ent a primary low transverse section to deliver a live female child. Estimated blood loss w as 600 mL. FINDINGS: Viable female , occiput posterior, slightly asynclitic with Apgars of 8 and 9. Norm al uterus, tubes and ovaries were noted bilaterally. The patient's postoperative course and course was uncomplicated. She tolerated a regular diet, ambulated without difficulty, voided without difficulty, after the removal of her [place] cathete r and had her pain well controlled on oral pain medications. She was discharged home on postoperativ e day #2. Her discharge H and H was 8.7 and 27.9, but she was asymptomatic from that standpoint. khanh will follow up in 6 weeks. Continue vitamin and iron. Job ID: [id number]
== END 2021-11-09 14:30 | disposition home or self-care (01) | DRG 788 ==
LOC: OPB 05:03 → 4S1 05:07 → 4E2 11-07 13:00